=== PATIENT | female | born 1990 | race Caucasian/White ===

== ENCOUNTER 2018-09-12 08:27 | Emergency (ER) | payer BC ==
[~2018-09-12] VITALS: Ht 160 cm; Wt 55.9 kg
[~2018-09-12 08:27] MED LIST: ACETAMINOPHEN325 MG PO; COMBIVENT RESPIM4 GM INH; IBUPROFEN200 MG PO; POLY IRON PN TA1 TAB PO
[2018-09-12 08:43] VITALS: Ht 160 cm; Wt 55.9 kg
[2018-09-12] MEDS ORDERED: MEDROL DOSE PACK4 MG PO (08:45)
[2018-09-12 09:09] LABS: BASOPHILS 0.3 % (0-2); EOSINOPHILS 1.3 % (0-7); HEMATOCRIT 36.9 % (36.0-48.0); HEMOGLOBIN 12.8 g/dL (12-16); IMMATURE GRANULOCYTES 0.4 % (0-5); LYMPHOCYTES 31.7 % (15-50); MCH 37.4 pg (26.0-34.0); MCHC 34.7 g/dL (31.0-37.0); MCV 107.9 fL (80.0-100.0); MEAN PLATELET VOLUME 11.1 fL (7.4-10.4); MONOCYTES 7.2 % (2-11); NEUTROPHILS 59.1 % (40-80); RBC 3.42 10x6/uL (4.00-5.40)
[2018-09-12 09:17] LABS: PLATELET COUNT 218 10x3/uL (130-400)
[2018-09-12 09:36] LABS: ALBUMIN 2.8 g/dL (3.4-5.0); ALKALINE PHOSPHATASE 165 U/L (46-116); ALT (SGPT) 51 U/L (10-68); AMYLASE - SERUM 25 U/L (25-115); BILIRUBIN - TOTAL 0.69 mg/dL (0.2-1.3); CALC OSMOLALITY 274 mosm/kg (275-300); CALCIUM 8.7 mg/dL (8.5-10.1); CARBON DIOXIDE 23.6 mmol/L (21.0-32.0); CHLORIDE - SERUM 102 mmol/L (98-107); CREATININE - SERUM 0.6 mg/dL (0.6-1.3); GLUCOSE 88 mg/dL (74-106); LIPASE 212 U/L (73-393); PRO BNP 124 pg/mL (0-125); PROTEIN - SERUM 6.7 g/dL (6.4-8.2); SODIUM 140 mmol/L (136-145); UREA NITROGEN 5 mg/dL (7-18); eGFR NON AFRICAN AMERICAN > 90 mL/min (90-120)
[2018-09-12 09:44] LABS: POTASSIUM - SERUM 2.4 mmol/L (3.5-5.1)
[2018-09-12 10:31] LABS: UDS - AMPHET NEGATIVE QUAL (NEGATIVE); UDS - BARB NEGATIVE QUAL (NEGATIVE); UDS - BENZO POSITIVE QUAL (NEGATIVE); UDS - COCAINE NEGATIVE QUAL (NEGATIVE); UDS - OPIATE POSITIVE QUAL (NEGATIVE); UDS - PCP NEGATIVE QUAL (NEGATIVE); UDS - THC POSITIVE QUAL (NEGATIVE)
[2018-09-12] MEDS ORDERED: ZOFRAN ODT4 MG/UDTAB PO (10:53)
[2018-09-12 11:41] LABS: HCG URINE NEGATIVE (NEGATIVE)
[2018-09-12 11:45] LABS: APPEARANCE HAZY (CLEAR); BILIRUBIN NEGATIVE (NEGATIVE); COLOR DK YELLOW (YELLOW); GLUCOSE NEGATIVE (NEGATIVE); KETONE NEGATIVE (NEGATIVE); NITRITE POSITIVE (NEGATIVE); PROTEIN TRACE mg/dL (NEGATIVE); SPECIFIC GRAVITY 1.005 (1.005-1.020); UROBILINOGEN NORMAL (NORMAL)
[2018-09-12 11:51] LABS: BACTERIA MANY /hpf (NONE SEEN); EPITHELIAL CELLS 0-5 /hpf (0-5); RED CELLS - URINE 0-5 /hpf (0-5)
[2018-09-12 13:56] VITALS: BP 132/96
== END 2018-09-12 13:56 | disposition home or self-care (01) ==
LOC: D.ER 08:27
PROVIDERS: Family Medicine
DX: R10.9 Unspecified abdominal pain (principal); R79.89 Other specified abnormal findings of blood chemistry; E87.6 Hypokalemia; F17.200 Nicotine dependence, unspecified, uncomplicated

== ENCOUNTER 2019-04-24 09:43 | Inpatient (IN) | payer MEDICAID ==
[~2019-04-24] VITALS: Ht 160 cm; Wt 57.2 kg
[~2019-04-24 09:43] MED LIST changes: +MEDROL DOSE PACK4 MG PO; +ZOFRAN ODT4 MG/UDTAB PO
--- NOTE | 2019-04-24 10:49 | NUR ---
PT DRINKING CONTRAST FOR CT. INFORM PT WE NEED A URINE SAMPLE FOR LAB.
[2019-04-24 11:02] LABS: BASOPHILS 0.1 % (0-2); EOSINOPHILS 0.4 % (0-7); HEMATOCRIT 28.8 % (36.0-48.0); HEMOGLOBIN 10.4 g/dL (12-16); IMMATURE GRANULOCYTES 0.4 % (0-5); LYMPHOCYTES 10.4 % (15-50); MCH 41.4 pg (26.0-34.0); MCHC 36.1 g/dL (31.0-37.0); MCV 114.7 fL (80.0-100.0); MEAN PLATELET VOLUME 11.1 fL (7.4-10.4); MONOCYTES 8.5 % (2-11); NEUTROPHILS 80.2 % (40-80); PLATELET COUNT 238 10x3/uL (130-400); RBC 2.51 10x6/uL (4.00-5.40); RDW 15.5 % (11.5-14.5); WBC 9.4 10x3/uL (4.8-10.8)
[2019-04-24 11:19] LABS: ALBUMIN 2.6 g/dL (3.4-5.0); ALKALINE PHOSPHATASE 101 U/L (46-116); ALT (SGPT) 25 U/L (10-68); C-REACTIVE PROTEIN 0.8 mg/dL (0.0-0.9); CALC OSMOLALITY 268 mosm/kg (275-300); CALCIUM 7.8 mg/dL (8.5-10.1); CARBON DIOXIDE 25.5 mmol/L (21.0-32.0); CHLORIDE - SERUM 97 mmol/L (98-107); CREATININE - SERUM 0.7 mg/dL (0.6-1.3); GLUCOSE 109 mg/dL (74-106); LIPASE 76 U/L (73-393); PROTEIN - SERUM 5.6 g/dL (6.4-8.2); SODIUM 136 mmol/L (136-145); UREA NITROGEN 2 mg/dL (7-18); eGFR NON AFRICAN AMERICAN > 90 mL/min (90-120)
--- NOTE | 2019-04-24 11:20 | NUR ---
CLEAN CATCH UA COLLECTED ET SENT TO LAB. PT DENIES FURTHER NEEDS AT THIS TIME. NS 1L CONTINUES TO INFUSE. WILL CONTINUE TO MONITOR.
[2019-04-24 11:26] LABS: POTASSIUM - SERUM 2.1 mmol/L (3.5-5.1)
[2019-04-24 11:38] LABS: HCG URINE NEGATIVE (NEGATIVE)
[2019-04-24 11:40] LABS: APPEARANCE HAZY (CLEAR); COLOR DK YELLOW (YELLOW); GLUCOSE NEGATIVE (NEGATIVE); KETONE LARGE mg/dL (NEGATIVE); NITRITE NEGATIVE (NEGATIVE); PROTEIN TRACE mg/dL (NEGATIVE); SPECIFIC GRAVITY 1.025 (1.005-1.020)
[2019-04-24 11:41] LABS: BILIRUBIN NEGATIVE (NEGATIVE); WHITE CELLS - URINE RARE /hpf (0-5)
[2019-04-24 11:42] LABS: EPITHELIAL CELLS RARE /hpf (0-5)
[2019-04-24 11:43] LABS: BACTERIA FEW /hpf (NONE SEEN)
--- NOTE | 2019-04-24 12:26 | NUR ---
PT UNABLE TO TOLERATE POTASSIUM RIDER AT 100ML/HR RATE. RATE SLOWED TO 50ML/HR. PT ABLE TO TOLERATE AT THIS TIME. WILL CONTINUE TO MONITOR.
[2019-04-24 15:00] VITALS: BP 114/69; BMI 22.3
[2019-04-24] MEDS ORDERED: MACROBID100 MG PO (15:17)
[2019-04-24] MEDS ORDERED: CARAFATE1 G PO (15:18)
[2019-04-24] MEDS ORDERED: OMEPRAZOLE20 M1 PO (15:19)
[2019-04-24] MEDS ORDERED: EFFEXOR XR75 MG PO (15:19)
[2019-04-24] MEDS ORDERED: FERROUS GLUCON324 MG PO (15:20)
--- NOTE | 2019-04-24 18:01 | NUR ---
PT RESTING IN BED, TOLERATED LIQUID SUPPER WITHOUT DIFFICULTIES. WILL CONT TO FOLLOW POC
--- NOTE | 2019-04-24 18:50 | NUR ---
PT TOLERATED CLEAR LIQUID DIET AND ASKED FOR PACKAGE OF SALTINE CRACKERS AND SHE TOLERATED WELL. ROBSON HOSKINS AND NEW ORDER GIVEN TO START PT ON A BLAND DIET.
[2019-04-24 19:28] LABS: APTT 28.4 SECONDS (22.8-39.4); INR 1.3 (0.85-1.17); PROTIME 15.6 SECONDS (11.6-15.0)
[2019-04-24 19:29] LABS: D-DIMER-QUANTITATIVE 0.37 ug/mLFEU (0.20-0.54)
[2019-04-24 19:35] LABS: % SATURATION 108 % (15-55); IRON 175 ug/dl (35-150); TOTAL IRON BIND CAPACITY 161 ug/dl (260-445)
--- NOTE | 2019-04-24 19:41 | NUR ---
RECIEVED UP IN BED WITH EYEWS OPEN AND MANY VISITORS AT BEDSIDE. ALERT AND ORIENTED X4. NUP AD ESTHER. IV TO RIGHT FA WITH MAG AND POTASSIUM INFUSING AT 200CC HR. NO REDNESS OR SWELLING TO SITE. DENIES ANY NEEDS AT THIS TIME.
[2019-04-24 19:50] LABS: UNSAT IRON BIND CAPACITY -14 ug/dl (150-375)
[2019-04-24 20:00] VITALS: BP 136/64
[2019-04-24 20:02] LABS: MAGNESIUM - SERUM 3.1 mg/dL (1.8-2.4)
[2019-04-24 20:06] LABS: POTASSIUM - SERUM 2.6 mmol/L (3.5-5.1)
[2019-04-24 20:12] LABS: HCG SERUM NEGATIVE (NEGATIVE)
[2019-04-25 07:45] LABS: BASOPHILS 0.3 % (0-2); EOSINOPHILS 3.7 % (0-7); HEMATOCRIT 24.5 % (36.0-48.0); HEMOGLOBIN 8.9 g/dL (12-16); IMMATURE GRANULOCYTES 0.5 % (0-5); LYMPHOCYTES 23.8 % (15-50); MCHC 36.3 g/dL (31.0-37.0); MCV 115.6 fL (80.0-100.0); MEAN PLATELET VOLUME 11.1 fL (7.4-10.4); MONOCYTES 8.8 % (2-11); NEUTROPHILS 62.9 % (40-80); PLATELET COUNT 211 10x3/uL (130-400); RBC 2.12 10x6/uL (4.00-5.40); RDW 15.6 % (11.5-14.5)
[2019-04-25 07:46] LABS: WBC 6.5 10x3/uL (4.8-10.8)
[2019-04-25 08:05] LABS: ALKALINE PHOSPHATASE 80 U/L (46-116); BILIRUBIN - TOTAL 1.64 mg/dL (0.2-1.3); CALC OSMOLALITY 273 mosm/kg (275-300); CARBON DIOXIDE 27.3 mmol/L (21.0-32.0); CHLORIDE - SERUM 105 mmol/L (98-107); GLUCOSE 96 mg/dL (74-106); MAGNESIUM - SERUM 2.8 mg/dL (1.8-2.4); PROTEIN - SERUM 4.6 g/dL (6.4-8.2); SODIUM 139 mmol/L (136-145); UREA NITROGEN 2 mg/dL (7-18)
[2019-04-25 08:07] LABS: CREATININE - SERUM 0.3 mg/dL (0.6-1.3); POTASSIUM - SERUM 2.6 mmol/L (3.5-5.1); eGFR NON AFRICAN AMERICAN > 90 mL/min (90-120)
[2019-04-25 08:08] LABS: ALT (SGPT) 16 U/L (10-68); CALCIUM 6.9 mg/dL (8.5-10.1)
[2019-04-25 10:00] VITALS: Ht 160 cm; Wt 57.2 kg
[2019-04-25 10:04] VITALS: BP 98/72
--- NOTE | 2019-04-25 10:24 | NUR ---
THE PATIENT WAS LYING IN BED AND WATCHING TELEVISION WHEN STAFF ENTERED HER ROOM. BED IS IN THE LOW POSITION WITH SIDERAILS X2 AND CALL LIGHT WITHIN REACH. THE PATIENT WAS EDUCATED ON THE USE OF A CALL LIGHT AND DEMONSTRATED UNDERSTANDING VIA TEACHBACK METHOD. THE PATIENT APPEARS COMFORTABLE AND HAS NO QUESTIONS OR CONCERNS AT THIS TIME.
[2019-04-25] MEDS ORDERED: POTASSIUM CHLO20 MEQ PO (12:39)
[2019-04-25 15:16] LABS: UDS - AMPHET NEGATIVE QUAL (NEGATIVE); UDS - BARB NEGATIVE QUAL (NEGATIVE); UDS - BENZO NEGATIVE QUAL (NEGATIVE); UDS - COCAINE NEGATIVE QUAL (NEGATIVE); UDS - OPIATE POSITIVE QUAL (NEGATIVE); UDS - PCP NEGATIVE QUAL (NEGATIVE); UDS - THC POSITIVE QUAL (NEGATIVE)
== END 2019-04-25 16:15 | disposition home or self-care (01) | DRG 641 ==
LOC: D.ER 09:43 → D.M3 13:22
PROVIDERS: Family Medicine; ADMIT Internal Medicine Nephrology; ATTEND Internal Medicine Nephrology
DX: E87.6 Hypokalemia (principal); N17.9 Acute kidney failure, unspecified; D68.9 Coagulation defect, unspecified; F17.213 Nicotine dependence, cigarettes, with withdrawal; E44.0 Moderate protein-calorie malnutrition; N39.0 Urinary tract infection, site not specified; E83.51 Hypocalcemia; E83.42 Hypomagnesemia; F17.210 Nicotine dependence, cigarettes, uncomplicated; D53.9 Nutritional anemia, unspecified; J44.9 Chronic obstructive pulmonary disease, unspecified; K21.9 Gastro-esophageal reflux disease without esophagitis; K58.9 Irritable bowel syndrome, unspecified; F12.90 Cannabis use, unspecified, uncomplicated; F10.10 Alcohol abuse, uncomplicated; Z68.22 Body mass index [BMI] 22.0-22.9, adult